=== PATIENT | female | born 2000 | race Caucasian/White ===

== ENCOUNTER 2020-04-21 01:31 | Emergency (ER) | payer OTHER ==
[2020-04-21] MEDS ORDERED: Alum Hydroxide/Mag Hydroxide 15 ML, Lidocaine 2% 15 ML PO STA ×2 (01:54)
[2020-04-21] MEDS ORDERED: Ondansetron 4 MG Tab.DIS PO STA (01:54)
--- NOTE | 2020-04-21 02:31 | EDM.PDOC ---
ED HPI GENERAL MEDICAL PROBLEM - General Chief Complaint: Abdominal Pain Stated Complaint: ABDOMINAL PAIN; BACK PAIN Time Seen by Provider: 04/21/20 01:45 Source of Information: Reports: Patient History Limitations: Reports: No Limitations - History of Present Illness INITIAL COMMENTS - FREE TEXT/NARRATIVE: Patient presented to the ED because of epigastric pain. It's burning,radiating towards the mid back. There is nausea but no vomiting. she is taking Naproxen 500 mg BID for a hamstring injury. 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 Musculoskeletal History: Reports: Other (See Below) Other Musculoskeletal History: hx of hamstring injury Social & Family History - Tobacco Use Smoking Status *Q: Unknown Ever Smoked ED ROS GENERAL - Review of Systems Review Of Systems: See Below Constitutional: Reports: No Symptoms HEENT: Reports: No Symptoms Respiratory: Reports: No Symptoms Cardiovascular: Reports: No Symptoms Endocrine: Reports: No Symptoms GI/Abdominal: Reports: Abdominal Pain, Nausea Musculoskeletal: Reports: No Symptoms Skin: Reports: No Symptoms Neurological: Reports: No Symptoms Psychiatric: Reports: No Symptoms ED EXAM, GI/ABD - Physical Exam Exam: See Below Exam Limited By: No Limitations General Appearance: Alert, No Apparent Distress Ears: Normal External Exam, Normal Canal, Hearing Grossly Normal Nose: Normal Inspection, Normal Mucosa Throat/Mouth: Normal Inspection, Normal Lips, Normal Teeth Head: Atraumatic, Normocephalic Neck: Normal Inspection, Supple, Non-Tender Respiratory/Chest: No Respiratory Distress, Lungs Clear, Normal Breath Sounds, No Accessory Muscle Use, Chest Non-Tender Cardiovascular: Normal Peripheral Pulses, Regular Rate, Rhythm, No Edema GI/Abdominal Exam: Normal Bowel Sounds, Soft, No Organomegaly, Other (epigastric tenderness) Back Exam: Normal Inspection, Full Range of Motion Extremities: Normal Inspection, Normal Range of Motion Course - Vital Signs Text/Narrative:: Zofran ODT 4 mg po x1 Gi cocktail Last Recorded V/S: Last Vital Signs Temp 36.3 C 04/21/20 01:42 Pulse 60 04/21/20 01:42 Resp 16 04/21/20 01:42 BP 99/60 04/21/20 01:42 Pulse Ox 100 04/21/20 01:42 - Orders/Labs/Meds Meds: Medications Discontinued Medications Generic Name Dose Route Start Last Admin Trade Name Freq PRN Reason Stop Dose Admin Al Hydroxide/Mg Hydroxide 15 0 ml 04/21/20 01:54 04/21/20 02:10 ml/ Lidocaine HCl 15 ml PO 04/21/20 01:55 15 ml NOW STA Administration Ondansetron HCl 4 mg 04/21/20 01:54 04/21/20 02:10 Zofran Odt PO 04/21/20 01:55 4 mg NOW STA Administration Departure - Departure Time of Disposition: 02:30 Disposition: Home, Self-Care 01 Condition: Good Clinical Impression: GERD (gastroesophageal reflux disease), Gastritis - Discharge Information Prescriptions: Cyclobenzaprine [Flexeril] 10 mg PO TID PRN #15 tab PRN Reason: Spasms Instructions: Gastritis, Adult, [id number], Heartburn, [id number] Referrals: PCP,None [Primary Care Provider] - Forms: ED Department Discharge Additional Instructions: Please read discharge instructions on GERD and Gastritis Quit taking Naproxen Take tylenol 1000 mg every 8 hours as needed for pain Flexeril 10 mg every 8 hours as needed for muscle spasms and pain Follow up as needed Sepsis Event Note (ED) - Evaluation Sepsis Screening Result: No Definite Risk - Focused Exam Vital Signs: Vital Signs Temp Pulse Resp BP Pulse Ox 04/21/20 01:42 36.3 C 60 16 99/60 100
== END 2020-04-21 02:40 | disposition home or self-care (01) ==
LOC: FB.ED 01:31
DX: K21.9 Gastro-esophageal reflux disease without esophagitis (principal); K29.70 Gastritis, unspecified, without bleeding
CPT/HCPCS: 99283; A9270-GY

== ENCOUNTER 2020-05-13 18:34 | Emergency (ER) | payer OTHER ==
[2020-05-13] MEDS ORDERED: Ibuprofen 600 MG Tab PO ONE (19:08)
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
== END 2020-05-13 19:30 | disposition home or self-care (01) ==
LOC: FB.ED 18:34
DX: S76.912A Strain of unspecified muscles, fascia and tendons at thigh level, left thigh, initial encounter (principal); Z79.899 Other long term (current) drug therapy; X50.9XXA Other and unspecified overexertion or strenuous movements or postures, initial encounter
CPT/HCPCS: 99283; A9270; 99282